=== PATIENT | female | born 1995 | race Two or more races ===

== ENCOUNTER 2017-01-04 22:10 | Emergency (ER) | payer MEDICAID ==
[~2017-01-04] VITALS: Ht 162.6 cm; Wt 81.6 kg
[2017-01-04 22:30] VITALS: BP 131/85
== END 2017-01-05 04:03 | disposition left against medical advice (07) ==
LOC: ER 22:18
DX: R10.9 Unspecified abdominal pain (principal); Z53.21 Procedure and treatment not carried out due to patient leaving prior to being seen by health care provider